=== PATIENT | male | born 2000 | race Caucasian/White ===

== ENCOUNTER 2023-06-18 02:17 | Emergency (ER) | payer OTHER, SELFPAY ==
--- OUTSIDE RECORDS SUMMARY | 2023-06-18 02:21 | XMS REPORT | Continuity of Care Document ---
Author Name Unknown Address [address] [facility] [address]. [address] th[address] Address [address] [facility]. [address] [place] [address] Care Team Providers Care Morgue Attendant Name Role Phone Only, Ang Db Test Attending Clinician Unavailabl e Cortes Nuno Attending Clinician [phone] CORTES DALAL Attending Clinician Unavailable Doctor Unassigned, [place] Attending Clinician U navailable Payers Payer Name Policy Type Policy Number Effective Date Expirati on Date Source Allergies, Adverse Reactions, Alerts Allergy Name Allergy Type Status Severity Reaction(s) Onset Date Inactive Date Treating Clinician Comments Source AMOXICIL JUSTIN-POT CLAVULAN ATE DRUG Active Rash 08-20 00:00: 00 General acute hospital Amoxicil justin-Pot Clavulan ate Propensi ty to adverse reaction s Active Anaphylaxis 08-20 00:00: 00 General acute hospital Social History Social Habit Start Date Stop Date Quantity Comments Source Exposure to SARS-CoV-2 (event) Not sure [facility] Tobacco use and exposure 2017-03-22 00:00:00 2017-03-22 00:00:00 Never used [facility] Sex Assigned At 2000 00:00:00 2000 00:00:00 [facility] Smoking Status Start Date Stop Date Source Never smoker [facility] Medications Ordered Medication Name Filled Medication Name Start Date Stop Date Current Medication? Ordering Clinician Indication Dosage Frequency Signature (SIG) Comments Components Source No known medications 03-25 15:58: 34 No General acute hospital Encounters Start Date/Time End Date/Time Encounter Type Admission Type Attending Clinicians Care Facility Care Department Encounter ID Source 2021-03-08 16:15:00 2021-03-08 16:30:00 Laboratory Only Only, Ang Db Test Cortes Dalal [facility]?JOSE ALEJANDRO [facility] 1..[id number] General acute hospital 2021-03-08 16:15:00 2021-03-08 16:15:00 [id number] General acute hospital 2021-03-08 16:15:00 2021-03-08 16:15:00 Outpatient R CORTES DALAL [facility] [id number] General acute hospital 2021-03-08 00:00:00 2021-03-08 00:00:00 Letter (Out) Doctor Unassigned, [place] [facility] 1..840.114 [id number] General acute hospital
[2023-06-18] MEDS ORDERED: FLUORESCEIN SODIUM 1 MG/WRAP ONE (02:39)
[2023-06-18] MEDS ORDERED: TETRACAINE HCL 0.5% 4ML OPTH ONE (02:40)
--- NOTE | 2023-06-18 02:58 | EDPHYS ---
Physician Documentation [facility] Name: Saad Shaikh Age: 23 yrs Sex: Male : 2000 Arrival Date: 06/18/2023 Time: :17 Bed 19 Private MD: ED Physician Phoebe Daly HPI: 06/17 02:54 This 23 yrs old Male presents to ER via Wheelchair with complaints of Eye Problem, pt sp3 can not see, eyes are buring, Eye Pain. 02:54 23-year-old male presents with bilateral eyes burning, redness and irritation. Patient sp3 states that he has had a short-term contact lens on for the last 4+ months and he pry them out of his eyes today. 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 He denies any other symptoms including purulent discharge, discharge in general, fever, URI symptoms, change in vision, or any other signs or symptoms on ROS at this time.. Historical: - Allergies: 02:53 Augmentin; pf1 - PMHx: 02:53 None; pf1 - PSHx: 02:53 None; pf1 - Immunization history:: Adult Immunizations not up to date, Client reports having NOT received the Covid vaccine. Last tetanus immunization: < 10 years ago Flu vaccine is not up to date. - Infectious Disease History:: Denies. - Social history:: Smoking status: Patient reports the use of cigarette tobacco products, smokes two packs cigarettes per day. Patient uses alcohol, on a daily basis. street drugs, marijuana. ROS: 02:55 Constitutional: Negative for fever, chills, and weight loss, ENT: Negative for injury, sp3 pain, and discharge, Neck: Negative for injury, pain, and swelling, Cardiovascular: Negative for chest pain, palpitations, and edema, Respiratory: Negative for shortness of breath, cough, wheezing, and pleuritic chest pain, Abdomen/GI: Negative for abdominal pain, nausea, vomiting, diarrhea, and constipation, Back: Negative for injury and pain, MS/Extremity: Negative for injury and deformity, Skin: Negative for injury, rash, and discoloration, Neuro: Negative for headache, weakness, numbness, tingling, and seizure, Psych: Negative for depression, anxiety, suicide ideation, homicidal ideation, and hallucinations, Allergy/Immunology: Negative for hives, rash, and allergies, Endocrine: Negative for neck swelling, polydipsia, polyuria, polyphagia, and marked weight changes, 02:55 All other systems are negative, Exam: 02:55 Constitutional: This is a well developed, well nourished patient who is awake, alert, sp3 and in no acute distress. Head/Face: Normocephalic, atraumatic. ENT: Nares patent. No nasal discharge, no septal abnormalities noted. External auditory canals are clear. Oropharynx with no redness, swelling, or masses, exudates, or evidence of obstruction, uvula midline. Mucous membranes moist. Neck: Trachea midline, no thyromegaly or masses palpated, and no cervical lymphadenopathy. Supple, full range of motion without nuchal rigidity, or vertebral point tenderness. No Meningismus. Chest/axilla: Normal chest wall appearance and motion. Nontender with no deformity. No lesions are appreciated. Cardiovascular: Regular rate and rhythm with a normal S1 and S2. No gallops, murmurs, or rubs. Normal PMI, no JVD. No pulse deficits. Respiratory: Lungs have equal breath sounds bilaterally, clear to auscultation and percussion. No rales, rhonchi or wheezes noted. No increased work of breathing, no retractions or nasal flaring. Abdomen/GI: Soft, non-tender, with normal bowel sounds. No distension or tympany. No guarding or rebound. No evidence of tenderness throughout. Back: No spinal tenderness. No costovertebral tenderness. Full range of motion. Skin: Warm, dry with normal turgor. Normal color with no rashes, no lesions, and no evidence of cellulitis. MS/ Extremity: Pulses equal, no cyanosis. Neurovascular intact. Full, normal range of motion. Neuro: Awake and alert, GCS 15, oriented to person, place, time, and situation. Cranial nerves II-XII grossly intact. Motor strength 5/5 in all extremities. Sensory grossly intact. Cerebellar exam normal. Normal gait. Psych: Awake, alert, with orientation to person, place and time. Behavior, mood, and affect are within normal limits. 02:55 Eyes: Bilateral conjunctival erythema and irritation. Anterior chamber is clear without hyphema or other abnormality. Pupils are equal round reactive light. After tetracaine administration, all symptoms are resolved.. Vital Signs: 02:28 BP 134 / 82; Pulse 77; Resp 16; Temp 97.8; Pulse Ox 98% on R/A; Weight 86.18 kg; Height pf1 6 ft. 2 in. ; Pain 6/10; 02:28 Body Mass Index 24.39 (86.18 kg, 187.96 cm) pf1 02:28 Pain Scale: Adult pf1 MDM: 02:29 Patient medically screened. sp3 02:56 Data reviewed: vital signs, nurses notes. ED course: 23-year-old male with bilateral sp3 conjunctivitis versus uveitis. Will treat with combination antibiotic and steroid and follow-up with ophthalmology or optometry. Patient's girlfriend has a local manager [place] who patient states that he will follow-up with this week.. Administered Medications: 02:45 Drug: Tetracaine Ophthalmic Drops 0.5 % 2 drops Ophthalmic once; per eye Route: pf1 Ophthalmic; Site: both eyes; 03:10 Follow up: Response: No adverse reaction; Marked relief of symptoms; Pain is decreased pf1 Disposition Summary: 06/18/23 02:57 Discharge Ordered Notes: Location: Home sp3 Condition: Stable sp3 Diagnosis - Corneal abrasion, iritis/uveitis sp3 Followup: sp3 - With: Private Physician - When: Upon discharge from the Emergency Department - Reason: Continuance of care Discharge Instructions: - Discharge Summary Sheet sp3 Forms: - Medication Reconciliation Form sp3 - Thank You Letter sp3 - Antibiotic Education sp3 - Prescription Opioid Use sp3 - Patient Portal Instructions sp3 - Leadership Thank You Letter sp3 Prescriptions: - Maxitrol 3.5mg/mL-10,000 unit/mL-0.1 % Ophthalmic drops, suspension - instill 2 drop OPHTHALMIC route every 4 hours; 5 milliliter; Refills: 0, sp3 Product Selection Permitted Signatures: Phoebe Daly MD MD sp3 Olivia Grey RN RN pf1
--- NOTE | 2023-06-18 02:58 | ER ---
Nurse's Notes [facility] Name: Saad Shaikh Age: 23 yrs Sex: Male : 2000 Arrival Date: 06/18/2023 Time: 02:17 Bed 19 Private MD: Diagnosis: Corneal abrasion, iritis/uveitis Presentation: 06/17 02:28 Chief complaint: Patient states: bilateral eye redness with pain of 6,onset 1500 pf1 yesterday. 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 02:28 Coronavirus screen: Vaccine status: Patient reports being unvaccinated. Client denies pf1 travel out of the [place] in the last 14 days. At this time, the client does not indicate any symptoms associated with coronavirus-19. Ebola Screen: Patient negative for fever greater than or equal to 101.5 degrees Fahrenheit, and additional compatible Ebola Virus Disease symptoms. Mechanism of Injury: welding arc exposure without eye protection. The patient denies any loss of vision. Initial Sepsis Screen: Does the patient meet any 2 criteria? No. Patient's initial sepsis screen is negative. Does the patient have a suspected source of infection? No. Patient's initial sepsis screen is negative. Risk Assessment: Do you want to hurt yourself or someone else? Patient reports no desire to harm self or others. Onset of symptoms was June 17, 2023. 02:28 Method Of Arrival: Wheelchair pf1 02:28 Acuity: SHANNAN 4 pf1 Triage Assessment: 02:28 General: Appears in no apparent distress. uncomfortable, well groomed, well developed, pf1 Behavior is calm, cooperative, appropriate for age, quiet. 02:28 Pain: Complains of pain in right eye and left eye Pain currently is 6 out of 10 on a pf1 pain scale. EENT: Sclera/Cornea are reddened in outer aspect of conjuctiva of right eye, iris of right eye, inner aspect of conjuctiva of right eye, outer aspect of conjuctiva of left eye, iris of left eye and inner aspect of conjunctiva of left eye Reports pain in right eye and left eye Pain is 6 out of 10 on a pain scale. Neuro: No deficits noted. Level of Consciousness is awake, alert, obeys commands, Oriented to person, place, time, situation. Cardiovascular: No deficits noted. Capillary refill < 3 seconds Patient's skin is warm and dry. Respiratory: No deficits noted. Airway is patent Respiratory effort is even, unlabored, Respiratory pattern is regular, symmetrical. GI: No deficits noted. No signs and/or symptoms were reported involving the gastrointestinal system. : No deficits noted. No signs and/or symptoms were reported regarding the genitourinary system. Derm: No deficits noted. No signs and/or symptoms reported regarding the dermatologic system. Musculoskeletal: No deficits noted. No signs and/or symptoms reported regarding the musculoskeletal system. Injury Description: left contacts in without removal to clean the contacts for 4 months and also was exposed to welding arc yesterday without eye protection. Historical: - Allergies: 02:53 Augmentin; pf1 - PMHx: 02:53 None; pf1 - PSHx: 02:53 None; pf1 - Immunization history:: Adult Immunizations not up to date, Client reports having NOT received the Covid vaccine. Last tetanus immunization: < 10 years ago Flu vaccine is not up to date. - Infectious Disease History:: Denies. - Social history:: Smoking status: Patient reports the use of cigarette tobacco products, smokes two packs cigarettes per day. Patient uses alcohol, on a daily basis. street drugs, marijuana. Screenin:56 [facility] ED Fall Risk Assessment (Adult) History of falling in the last 3 months, pf1 including since admission No falls in past 3 months (0 pts) Confusion or Disorientation No (0 pts) Intoxicated or Sedated No (0 pts) Impaired Gait No (0 pts) Mobility Assist Device Used No (0 pt) Altered Elimination No (0 pt) Score/Fall Risk Level 0 - 2 = Low Risk Oriented to surroundings, Maintained a safe environment, Educated pt \T\ family on fall prevention, incl call for assistance when getting out of bed, Assessed \T\ reinforced patient's understanding of fall precautions, Provided non-skid footwear, Hourly rounding (assess needs \T\ fall precautionary measures) done, Used ambulatory aids as needed (educated on \T\ assisted with), Used gait belt as appropriate. Abuse screen: Denies threats or abuse. Nutritional screening: No deficits noted. Tuberculosis screening: No symptoms or risk factors identified. Assessment: 02:28 Reassessment: see triage assessment. pf1 02:28 EENT: Eyes are tearing on outer aspect of conjuctiva of right eye, iris of right eye, pf1 inner aspect of conjuctiva of right eye, right inner canthus, outer aspect of conjuctiva of left eye, iris of left eye and inner aspect of conjunctiva of left eye Reports pain in right eye and left eye with redness. Vital Signs: 02:28 BP 134 / 82; Pulse 77; Resp 16; Temp 97.8; Pulse Ox 98% on R/A; Weight 86.18 kg; Height pf1 6 ft. 2 in. ; Pain 6/10; 02:28 Body Mass Index 24.39 (86.18 kg, 187.96 cm) pf1 02:28 Pain Scale: Adult pf1 ED Course: 02:23 Patient arrived in ED. gm2 02:28 Arm band placed on right wrist. pf1 02:28 Patient has correct armband on for positive identification. Bed in low position. Call pf1 light in reach. Side rails up X 1. 02:28 Door closed. Noise minimized. Moved to private room. pf1 02:29 Phoebe Daly MD is Attending Physician. sp3 02:46 Olivia Grey, TISH is Primary Nurse. pf1 02:53 Triage completed. pf1 02:57 No provider procedures requiring assistance completed. Patient did not have IV access pf1 during this emergency room visit. 03:10 Provided Education on: prescription. pf1 Administered Medications: 02:45 Drug: Tetracaine Ophthalmic Drops 0.5 % 2 drops Ophthalmic once; per eye Route: pf1 Ophthalmic; Site: both eyes; 03:10 Follow up: Response: No adverse reaction; Marked relief of symptoms; Pain is decreased pf1 Medication: 03:10 VIS not applicable for this client. pf1 Outcome: 02:57 Discharge ordered by . sp3 03:10 Discharged to home ambulatory, with family, pf1 03:10 Condition: improved 03:10 Discharge instructions given to patient, family, Instructed on discharge instructions, follow up and referral plans. Demonstrated understanding of instructions, follow-up care, medications, Prescriptions given X 1, 03:28 Patient left the ED. pf1 Signatures: Phoebe Daly MD MD sp3 Olivia Grey RN RN pf1 Wanda Mckeon gm2 Corrections: (The following items were deleted from the chart) 03:11 03:10 EENT: Eyes are tearing on outer aspect of conjuctiva of right eye, iris of right pf1 eye, inner aspect of conjuctiva of right eye, right inner canthus, outer aspect of conjuctiva of left eye, iris of left eye and inner aspect of conjunctiva of left eye pf1
[2023-06-18 06:03] VITALS: BP 134/82; TEMP 97.8; O2SAT 98
== END 2023-06-18 03:28 | disposition home or self-care (01) ==
LOC: ER 02:17
DX: S05.02XA Injury of conjunctiva and corneal abrasion without foreign body, left eye, initial encounter (principal); S05.01XA Injury of conjunctiva and corneal abrasion without foreign body, right eye, initial encounter; H20.9 Unspecified iridocyclitis
CPT/HCPCS: 99283

== ENCOUNTER 2024-03-22 08:11 | Emergency (ER) | payer SELFPAY ==
[2024-03-22] MEDS ORDERED: LIDOCAINE 2% W/EPI 1:200,000 MPF 20 ML VIAL IM ONE (09:14)
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
[2024-03-22] MEDS ORDERED: CEPHALEXIN 250 MG CAP ONE (11:21)
[2024-03-22] MEDS ORDERED: BACI/NEOMYCIN/POLY OINT 15GM TOP ONE (11:22)
[2024-03-22 12:17] VITALS: TEMP 98.4
[2024-03-22 12:18] VITALS: BP 146/84; O2SAT 97
== END 2024-03-22 11:37 | disposition home or self-care (01) ==
LOC: ER 08:11
PROC: 0JQ13ZZ Repair Face Subcutaneous Tissue and Fascia, Percutaneous Approach (ICD-10-PCS; principal; 2024-03-22)
DX: S01.112A Laceration without foreign body of left eyelid and periocular area, initial encounter (principal); T25.222A Burn of second degree of left foot, initial encounter; T24.202A Burn of second degree of unspecified site of left lower limb, except ankle and foot, initial encounter; F17.210 Nicotine dependence, cigarettes, uncomplicated; Z88.1 Allergy status to other antibiotic agents
CPT/HCPCS: 12011; 99284